=== PATIENT | female | born 1930 | race Caucasian/White ===

== ENCOUNTER → 2017-07-04 | Outpatient (CLI) | payer MEDICARE ==
[~2017-07-04] MED LIST: ARICEPT10 MG PO; ASPIRIN325 MG PO; BUPROPION HYDR300 M1 PO; CLARITIN10 MG PO; FLONASE ALLERG9.9 ML NAS; HYDROCODONE BIT1 T11 PO; LEXAPRO10 MG PO; LEXAPRO20 MG PO; NAMENDA10 MG PO; NORCO 325 MG-101 TAB PO; NORCO 325 MG-51 TAB PO; PREDNISONE10 MG PO; ROBITUSSIN AC 110 ML PO; SIMVASTATIN40 MG PO; VIIBRYD40 PO; WELLBUTRIN100 MG PO; ZOFRAN4 MG PO
== END | disposition home or self-care (01) ==
LOC: US 10:57
DX: I25.10 Atherosclerotic heart disease of native coronary artery without angina pectoris (principal); I65.1 Occlusion and stenosis of basilar artery; I77.9 Disorder of arteries and arterioles, unspecified; I65.23 Occlusion and stenosis of bilateral carotid arteries

== ENCOUNTER 2017-07-20 08:09 | Emergency (ER) | payer MEDICARE ==
[~2017-07-20] VITALS: Ht 162.5 cm; Wt 59.0 kg
[2017-07-20] MEDS ORDERED: NORCO 10-325 T1 EACH PO (10:31)
== END 2017-07-20 11:25 | disposition home or self-care (01) ==
LOC: ED 08:09
DX: M46.92 Unspecified inflammatory spondylopathy, cervical region (principal); M25.512 Pain in left shoulder; Z90.710 Acquired absence of both cervix and uterus; Z79.82 Long term (current) use of aspirin; Z79.899 Other long term (current) drug therapy; Z88.0 Allergy status to penicillin; Z88.2 Allergy status to sulfonamides

== ENCOUNTER → 2017-08-02 | Outpatient (CLI) | payer MEDICARE ==
[~2017-08-02] MED LIST changes: +NORCO 10-325 T1 EACH PO
== END | disposition home or self-care (01) ==
LOC: MAMMO 07-13 10:40
DX: Z12.31 Encounter for screening mammogram for malignant neoplasm of breast (principal)

== ENCOUNTER → 2017-12-07 | Outpatient (CLI) | payer MEDICARE ==
[2017-12-07 11:37] LABS: BASO % 0.6 % (0.0-1.0); EOS # 0.1 10*3/uL (0.0-0.4); EOS % 1.5 % (1.0-4.0); HEMATOCRIT 44.9 % (37.0-47.0); HEMOGLOBIN 14.4 g/dl (12.0-16.0); LYMPH # 1.9 10*3/uL (1.3-4.4); MEAN CELL VOLUME 91.3 fl (81.0-99.0); MEAN CORPUSCULAR HGB 29.3 pg (27.0-31.0); MEAN CORPUSCULAR HGB CONC 32.1 g/dl (33.0-37.0); MEAN PLATELET VOLUME 11.3 fl (9.6-12.3); MONO # 0.6 10*3/uL (0.1-1.0); MONO % 9.3 % (3.0-9.0); NEUT # 3.9 10*3/uL (2.3-7.9); NEUT % 59.3 % (47.0-73.0); PLATELET COUNT AUTOMATED 290 10*3/uL (130-400); RED BLOOD COUNT 4.92 10*6/uL (4.10-5.10); RED CELL DISTRI WIDTH 13.6 % (0-14.5); WHITE BLOOD COUNT 6.6 10*3/uL (4.8-10.8)
[2017-12-07 12:04] LABS: ALBUMIN 3.5 gm/dl (3.1-4.5); BUN 19 mg/dl (7-24); CHLORIDE 104 mmol/L (98-107); CREATININE 0.91 mg/dL (0.55-1.02); POTASSIUM 3.7 mmol/L (3.5-5.1); SGOT/AST 13 IU/L (3-35); SGPT/ALT 21 U/L (12-78); SODIUM 140 mmol/L (136-145)
[2017-12-07 12:05] LABS: ALKALINE PHOSPHATASE 90 U/L (45-117); TOTAL PROTEIN 6.9 gm/dL (6.4-8.2)
[2017-12-07 14:11] LABS: BILIRUBIN NEGATIVE (NEGATIVE); BLOOD TRACE-INTACT (NEGATIVE); CLARITY SL CLOUDY (CLEAR); COLOR YELLOW (YELLOW); GLUCOSE NEGATIVE (NEGATIVE); KETONE NEGATIVE (NEGATIVE); LEUKO ESTERASE 2+ (NEGATIVE); NITRITE NEGATIVE (NEGATIVE); UROBILINOGEN 0.2 E.U./dl (0.2-1.0)
[2017-12-07 14:17] LABS: BACTERIA 2+; EPITHELIAL CELLS 0-2; RBC 0-2 rbc/hpf (0-2)
== END | disposition home or self-care (01) ==
LOC: LAB 10:22 → CARD 14:00
PROVIDERS: Internal Medicine Cardiovascular Disease; Specialist
DX: Z01.818 Encounter for other preprocedural examination (principal); M17.12 Unilateral primary osteoarthritis, left knee; I35.0 Nonrheumatic aortic (valve) stenosis

== ENCOUNTER → 2017-12-18 | Outpatient (CLI) | payer MEDICARE | END | disposition home or self-care (01) | LOC: LAB 11:37 | DX: M17.12 Unilateral primary osteoarthritis, left knee (principal) ==

== ENCOUNTER → 2018-11-12 | Outpatient (CLI) | payer MEDICARE ==
[~2018-11-12] MED LIST changes: +ALPRAZOLAM0.25 M2 PO; -ASPIRIN325 MG PO; +DURLAZA162.5 MG PO; +MIRALAX POWDER17 G1 PO; +PERCOCET 7.5-31 EACH PO; +TRAZODONE50 MG PO; +VITAMIN D32000 UNI1 PO; +WELLBUTRIN SR150 MG PO; -WELLBUTRIN100 MG PO
== END | disposition home or self-care (01) ==
LOC: RAD 09:45
DX: M47.817 Spondylosis without myelopathy or radiculopathy, lumbosacral region (principal); M51.36 Other intervertebral disc degeneration, lumbar region

== ENCOUNTER → 2019-01-16 | Outpatient (CLI) | payer MEDICARE | END | disposition home or self-care (01) | LOC: RAD 12:25 | DX: M16.11 Unilateral primary osteoarthritis, right hip (principal) ==

== ENCOUNTER 2019-06-04 12:41 | Emergency (ER) | payer MEDICARE ==
[~2019-06-04] VITALS: Ht 157.4 cm; Wt 63.5 kg
== END 2019-06-04 15:25 | disposition home or self-care (01) ==
LOC: ED 12:41
DX: F32.9 Major depressive disorder, single episode, unspecified (principal); Z76.0 Encounter for issue of repeat prescription; Z87.891 Personal history of nicotine dependence; Z88.0 Allergy status to penicillin; Z88.2 Allergy status to sulfonamides; Z79.899 Other long term (current) drug therapy